=== PATIENT | female | born 1960 | race Caucasian/White ===

== ENCOUNTER 2019-10-28 10:30 | Emergency (ER) | payer OTHER ==
[~2019-10-28] VITALS: Ht 154.9 cm; Wt 99.3 kg
[2019-10-28] MEDS ORDERED: TENORMIN25 MG (10:49)
[2019-10-28] MEDS ORDERED: SYNTHROID125 MCG (10:49)
[2019-10-28] MEDS ORDERED: ADULT LOW DOSE81 M1 (10:50)
[2019-10-28] MEDS ORDERED: VERELAN180 MG (10:50)
== END 2019-10-28 14:53 | disposition home or self-care (01) ==
LOC: ER 10:30
DX: N95.0 Postmenopausal bleeding (principal); Z20.828 Contact with and (suspected) exposure to other viral communicable diseases